=== PATIENT | female | born 1970 ===

== ENCOUNTER 2016-10-30 16:44 | Emergency (ER) | payer SELFPAY ==
[2016-10-30 17:05] VITALS: BP 133/70
--- NOTE | 2016-10-30 19:13 | ED ---
Luis Howell Alok, scribed for Berenice Prater MD on 10/30/16 at 1840 . Bite Injury/Animal - HPI Summary HPI Summary: 46F presents to the ED with lacerations and edema of the right hand following a dog bite. Pt was reportedly breaking up a fight between her dogs when she was bitten at 1530. Pt had her last tetanus shot a few months ago. Pt drinks ETOH and smokes tobacco. - History of Current Complaint Chief Complaint: EDGeneral Stated Complaint: DOG BITE/RIGHT HAND Time Seen by Provider: 10/30/16 17:53 Hx Obtained From: Patient Hx Last Menstrual Period: 2 weeks ago Onset of Injury: Happened hours ago Type of Bite: Pet Hx of Bite: Provoked by: - fight between other pet Has Animal Been Immunized?: Yes Severity Initially: Moderate Severity Currently: Moderate Pain Intensity: 2 Pain Scale Used: 0-10 Numeric Character: Abrasion/Laceration Aggravating Factor(s): Nothing Alleviating Factor(s): Nothing Associated Signs And Symptoms: Positive: Swelling Animal Available for Observation: Yes - Allergies/Home Medications Allergies/Adverse Reactions: Allergies Allergy/AdvReac Type Severity Reaction Status Date / Time No Known Allergies Allergy Verified 09/20/12 12:18 PMH/Surg Hx/FS Hx/Imm Hx Endocrine/Hematology History: Denies: Hx Diabetes, Hx Thyroid Disease Cardiovascular History: Denies: Hx Hypertension Respiratory History: Denies: Hx Asthma, Hx Chronic Obstructive Pulmonary Disease (COPD) GI History: Denies: Hx Ulcer Infectious Disease History: No Infectious Disease History: Denies: Hx Hepatitis, Hx Human Immunodeficiency Virus (HIV), Traveled Outside the [place] in Last 30 Days - Family History Known Family History: Negative: Diabetes - Social History Occupation: Employed Full-time Lives: Alone Alcohol Use: Occasionally Substance Use Type: Reports: None Smoking Status (MU): Current Every Day Smoker Review of Systems Negative: Fever Positive: Other - lacerations and edema right hand All Other Systems Reviewed And Are Negative: Yes Physical Exam Triage Information Reviewed: Yes Vital Signs On Initial Exam: Initial Vitals Temp Pulse Resp BP Pulse Ox 98.6 F 91 20 133/70 100 10/30/16 17:03 10/30/16 17:03 10/30/16 17:03 10/30/16 17:03 10/30/16 17:03 Vital Signs Reviewed: Yes Appearance: Positive: Well-Appearing, No Pain Distress Skin: Positive: Warm, Skin Color Reflects Adequate Perfusion, Dry, Other - 1 cm superficial laceration over lateral base of thumb. 4 cm laceration between 3rd and 4th finger over dorsal. Ligament movement and sensitivity normal. Eyes: Positive: EOMI, JORGE ENT: Positive: Pharynx normal, TMs normal Neck: Positive: Supple, Nontender Respiratory/Lung Sounds: Positive: Clear to Auscultation, Breath Sounds Present. Negative: Rales, Rhonchi, Wheezes Cardiovascular: Positive: RRR, Other - no gallop. Negative: Murmur, Rub Abdomen Description: Positive: Nontender, Soft, Other: - no rebound. Negative: Distended, Guarding Bowel Sounds: Positive: Present Musculoskeletal: Positive: Strength/ROM Intact. Negative: Edema Left, Edema Right Neurological: Positive: Sensory/Motor Intact, Alert, Oriented to Person Place, Time, CN Intact II-III Psychiatric: Positive: Affect/Mood Appropriate Procedures - Laceration/Wound Repair 1 Location: Other - right hand Description: Linear Length, Depth and Shape: 4 cm Irrigated w/ Saline (ccs): 250 Suture Type: Nylon - 4O Number of Sutures: 7 Diagnostics - Vital Signs Vital Signs Temp Pulse Resp BP Pulse Ox 10/30/16 17:05 98.5 F 95 20 133/70 100 10/30/16 17:03 98.6 F 91 20 133/70 100 - Laboratory Lab Statement: Any lab studies that have been ordered have been reviewed, and results considered in the medical decision making process. Bite Injury Course/Dx - Course Course Of Treatment: 46 yo female without pmd given augmentin script only to start if symptoms of infection start, hand nvi and tendons fully functional - Diagnoses Provider Diagnosis: Dog bite, hand Discharge - Discharge Plan Condition: Stable Disposition: HOME Prescriptions: Amoxicillin/Clavulanate TAB* [Augmentin TAB 875*] 875 mg PO BID #14 tab Patient Education Materials: Animal Bite (ED), Laceration (ED) Referrals: [facility] [place] [facility] [Outside] No Primary Care Phys,NOPCP [Primary Care Provider] - The documentation as recorded by the Luis sun Alok accurately reflects the service I personally performed and the decisions made by , Berenice Prater MD.
== END 2016-10-30 19:12 | disposition home or self-care (01) ==
LOC: ED 16:44
DX: S61.411A Laceration without foreign body of right hand, initial encounter (principal); W54.0XXA Bitten by dog, initial encounter; Y93.9 Activity, unspecified; Y92.9 Unspecified place or not applicable; F17.210 Nicotine dependence, cigarettes, uncomplicated
CPT/HCPCS: 12002; 99281